=== PATIENT | female | born 1980 | race African-American/Black ===

== ENCOUNTER → 2023-10-07 09:08 | Outpatient (REF) | payer OTHER, SELFPAY | LOC: DHCBC MAIN 09:08 | PROVIDERS: ATTENDING PHYSICIAN Internal Medicine Cardiovascular Disease; FAMILY PHYSICIAN Nurse Practitioner | DX: R00.2 Palpitations (principal); I47.10 Supraventricular tachycardia, unspecified | CPT/HCPCS: 93306 ==

== ENCOUNTER 2025-01-18 06:25 | Day surgery (SDC) | payer OTHER, SELFPAY | END 2025-01-18 11:15 | disposition home or self-care (01) | LOC: GI 06:25 | PROVIDERS: ATTENDING PHYSICIAN Internal Medicine Gastroenterology | DX: Z12.11 Encounter for screening for malignant neoplasm of colon (principal); K63.89 Other specified diseases of intestine | CPT/HCPCS: G0121 ==